=== PATIENT | female | born 1985 | race African-American/Black ===

== ENCOUNTER 2018-10-27 20:35 | Emergency (ER) | payer SELFPAY ==
[2018-10-27 21:50] LABS: Urine Bacteria >50 /HPF (<20); Urine Culture Reflex Order REFLEXED; Urine RBC <5 /HPF (NONE SEEN)
[2018-10-27 21:55] LABS: Urine Blood 1+ (NEG); Urine Glucose TRACE (NEG); Urine Protein 2+ (NEG); Urine Specific Gravity 1.015 (1.005-1.030)
[2018-10-27 22:04] LABS: Absolute Lymphocytes (CBC) 1.7 K/uL (0.7-4.9); Basophils % 0.4 % (0-1.3); Eosinophils % 0.1 % (0-4.4); Hematocrit 40.3 % (36.0-45.0); MPV 9.2 fL (7.6-11.3); Monocytes % 6.1 % (3.3-12.3); RBC Red Blood Cell Count 4.72 M/uL (3.86-4.86)
[2018-10-27] MEDS ORDERED: ONDANSETRON 4 MG/2 ML VIAL ONE (22:06)
[2018-10-27] MEDS ORDERED: KETOROLAC 30 MG/ML INJ ONE (22:09)
[2018-10-27 22:18] LABS: ALT/SGPT 29 U/L (12-78); AST/SGOT 32 U/L (15-37); Albumin 3.8 g/dL (3.4-5.0); Alkaline Phosphatase 78 U/L (45-117); BUN Blood Urea Nitrogen 6 mg/dL (7-18); Bicarbonate 24 mmol/L (21-32); Bilirubin Direct < 0.1 mg/dL (0-0.2); Bilirubin Total 0.2 mg/dL (0.2-1.0); Glucose Level 181 mg/dL (74-106); Lipase 120 U/L (73-393); Potassium 3.8 mmol/L (3.5-5.1); Protein, Total 8.6 g/dL (6.4-8.2); Sodium Level 138 mmol/L (136-145)
--- NOTE | 2018-10-27 23:38 | ER ---
Nurse's Notes [facility] Name: Jinny Zelaya Age: 33 yrs Sex: Female : 1985 Arrival Date: 10/27/2018 Time: 20:47 Bed 15 Private MD: Diagnosis: Urinary tract infection, site not specified Presentation: 10/27 20:51 Presenting complaint: Patient states: increased frequency of urination X1 week. pt c/o ak1 N/V today. Transition of care: patient was not received from another setting of care. Onset of symptoms is unknown. Risk Assessment: Do you want to hurt yourself or someone else? Patient reports no desire to harm self or others. Initial Sepsis Screen: Does the patient meet any 2 criteria? No. Patient's initial sepsis screen is negative. Does the patient have a suspected source of infection? No. Patient's initial sepsis screen is negative. Care prior to arrival: None. 20:51 Method Of Arrival: Ambulatory ak1 20:51 Acuity: ANAI 3 ak1 VEST PRESSER: 20:50 LMP 10/18/2018 ak1 Historical: - Allergies: 20:52 No Known Allergies; ak1 - Home Meds: 20:52 None [Active]; ak1 - PMHx: 20:52 None; ak1 - PSHx: 20:52 None; ak1 - Immunization history:: Adult Immunizations unknown. - Social history:: Smoking status: Patient/guardian denies using tobacco. - Ebola Screening: : No symptoms or risks identified at this time. - Family history:: not pertinent. - Hospitalizations: : No recent hospitalization is reported. Screenin:03 Abuse screen: Denies threats or abuse. Nutritional screening: No deficits noted. jd3 Tuberculosis screening: No symptoms or risk factors identified. Fall Risk IV access (20 points). Ambulatory Aid- None/Bed Rest/Nurse Assist (0 pts). Gait- Normal/Bed Rest/Wheelchair (0 pts) Mental Status- Oriented to own ability (0 pts). Total Nolasco Fall Scale indicates No Risk (0-24 pts). Assessment: 21:25 General: Appears in no apparent distress. uncomfortable, Behavior is calm, cooperative, jd3 appropriate for age. Pain: Complains of pain in abdomen Pain radiates to posterior aspect of right lateral abdomen and anterior aspect of right lateral abdomen Quality of pain is described as aching. Neuro: Level of Consciousness is awake, alert, obeys commands, Oriented to person, place, time, situation. Cardiovascular: Capillary refill < 3 seconds Patient's skin is warm and dry. Respiratory: Airway is patent Respiratory effort is even, unlabored, Respiratory pattern is regular, symmetrical, Denies cough, shortness of breath. GI: Abdomen is round non-distended, Abd is soft and non tender X 4 quads. Reports nausea, Patient currently denies diarrhea, vomiting. : Reports pain in right flank(s). EENT: No signs and/or symptoms were reported regarding the EENT system. Derm: Skin is intact, Skin is dry, Skin is normal, Skin temperature is warm. Musculoskeletal: Circulation, motion, and sensation intact. Range of motion: intact in all extremities. 23:04 Reassessment: Patient appears in no apparent distress at this time. Patient and/or jd3 family updated on plan of care and expected duration. Pain level reassessed. Patient is alert, oriented x 3, equal unlabored respirations, skin warm/dry/pink. awaiting results. 23:21 Reassessment: Patient appears in no apparent distress at this time. Patient and/or jd3 family updated on plan of care and expected duration. Pain level reassessed. Patient is alert, oriented x 3, equal unlabored respirations, skin warm/dry/pink. awaiting results and disposition. Patient states feeling better. Patient states symptoms have improved. 10/28 00:04 Reassessment: Patient appears in no apparent distress at this time. Patient and/or jd3 family updated on plan of care and expected duration. Pain level reassessed. Patient is alert, oriented x 3, equal unlabored respirations, skin warm/dry/pink. reported understanding of discharge instructions. even and steady gait upon discharge. Patient denies pain at this time. Patient states feeling better. Vital Signs: 10/27 20:50 BP 175 / 105; Pulse 92; Resp 18; Temp 98; Pulse Ox 98% on R/A; Weight 87.09 kg (R); ak1 Height 5 ft. 7 in. (170.18 cm) (R); Pain 10/10; 22:11 BP 157 / 105; Pulse 97; Pulse Ox 100% ; jd3 23:19 BP 116 / 67; Pulse 82; Resp 17 S; Pulse Ox 99% on R/A; Pain 2/10; jd3 20:50 Body Mass Index 30.07 (87.09 kg, 170.18 cm) ak1 ED Course: 20:47 Patient arrived in ED. ag3 20:52 Triage completed. ak1 20:52 Arm band placed on Patient placed in an exam room, Patient notified of wait time. ak1 21:12 Zachery Garcia MD is Attending Physician. rn 21:22 Radiology exam delayed due to test not completed at this time. nj 21:22 Jhonatan Hoyos RN is Primary Nurse. jd3 22:10 CT Stone Protocol In Process Unspecified. EDMS 23:04 Patient has correct armband on for positive identification. Placed in gown. Bed in low jd3 position. Call light in reach. Side rails up X 1. 10/28 00:06 No provider procedures requiring assistance completed. IV discontinued, intact, jd3 bleeding controlled, No redness/swelling at site. Pressure dressing applied. Administered Medications: 10/27 22:10 Drug: Zofran 4 mg Route: IVP; Site: left hand; jd3 23:10 Follow up: Response: No adverse reaction jd3 22:10 Drug: TORadol - Ketorolac 15 mg Route: IVP; Site: left hand; jd3 23:10 Follow up: Response: No adverse reaction jd3 23:43 Not Given (Duplicate Order): Rocephin - (cefTRIAXone) 1 grams IVPB once over 30 mins; jd3 (mix in 50 mL NS) 23:44 Drug: Rocephin 1 grams Route: IV; Rate: calculated rate; Site: left hand; jd3 10/28 00:07 Follow up: Response: No adverse reaction; IV Status: Completed infusion; IV Intake: [id number] Intake: 00:07 IV: 10ml; Total: 10ml. jd3 Outcome: 10/27 23:36 Discharge ordered by . rn 10/28 00:07 Discharged to home ambulatory. jd3 Condition: stable Discharge instructions given to patient, Instructed on discharge instructions, follow up and referral plans. medication usage, Demonstrated understanding of instructions, follow-up care, medications, Prescriptions given X 2. 00:08 Patient left the ED. jd3 Signatures: Dispatcher [employer] EDZachery Giordano MD MD rn Sarah Schmid RN RN ak1 Torey Guadarrama Jonathon, RN RN jd3 Ra, Maya jeffrey3
--- NOTE | 2018-10-27 23:38 | EDPHYS ---
Physician Documentation [facility] Name: Jinny Zelaya Age: 33 yrs Sex: Female : 1985 Arrival Date: 10/27/2018 Time: 20:47 Bed 15 Private MD: ED Physician Zachery Garcia HPI: 10/27 22:00 This 33 yrs old Black Female presents to ER via Ambulatory with complaints of Nausea. rn 22:00 The patient presents with abdominal pain right lower quadrant. Onset: The rn symptoms/episode began/occurred 6 day(s) ago. The symptoms radiate to The symptoms are described as achy, intermittent. Modifying factors: The symptoms are alleviated by nothing, the symptoms are aggravated by nothing. Severity of pain: At its worst the pain was mild in the emergency department the pain is unchanged. The patient has not experienced similar symptoms in the past. Reports right flank/right lower abd pain, intermittent, began 6 days ago, thought she had UTI, took Azo, now orange urine, assoc with nausea and vomiting, no diarrhea. . BANQUET LEAD: 20:50 LMP 10/18/2018 ak1 Historical: - Allergies: 20:52 No Known Allergies; ak1 - Home Meds: 20:52 None [Active]; ak1 - PMHx: 20:52 None; ak1 - PSHx: 20:52 None; ak1 - Immunization history:: Adult Immunizations unknown. - Social history:: Smoking status: Patient/guardian denies using tobacco. - Ebola Screening: : No symptoms or risks identified at this time. - Family history:: not pertinent. - Hospitalizations: : No recent hospitalization is reported. ROS: 22:00 Constitutional: Negative for fever, chills, and weight loss, Eyes: Negative for injury, rn pain, redness, and discharge, Cardiovascular: Negative for chest pain, palpitations, and edema, Respiratory: Negative for shortness of breath, cough, wheezing, and pleuritic chest pain, Abdomen/GI: Negative for diarrhea, and constipation, Back: Negative for injury : Negative for injury, bleeding, discharge, and swelling, MS/Extremity: Negative for injury and deformity, Skin: Negative for injury, rash, and discoloration, Neuro: Negative for headache, weakness, numbness, tingling, and seizure. Exam: 22:00 Constitutional: This is a well developed, well nourished patient who is awake, alert, rn and in no acute distress. Laying in bed, on phone. Head/Face: Normocephalic, atraumatic. Eyes: Pupils equal round and reactive to light, extra-ocular motions intact. Lids and lashes normal. Conjunctiva and sclera are non-icteric and not injected. Cornea within normal limits. Periorbital areas with no swelling, redness, or edema. ENT: MMM Neck: Trachea midline, no thyromegaly or masses palpated, and no cervical lymphadenopathy. Supple, full range of motion without nuchal rigidity, or vertebral point tenderness. No Meningismus. Abdomen/GI: soft, very mild RLQ tenderness with deep palpation, no rebound, no masses Back: No spinal tenderness. No costovertebral tenderness. Full range of motion. Skin: Warm, dry with normal turgor. Normal color with no rashes, no lesions, and no evidence of cellulitis. MS/ Extremity: Pulses equal, no cyanosis. Neurovascular intact. Full, normal range of motion. Equal circumference. Neuro: Awake and alert, GCS 15, oriented to person, place, time, and situation. Cranial nerves II-XII grossly intact. Motor strength 5/5 in all extremities. Sensory grossly intact. Cerebellar exam normal. Normal gait. Vital Signs: 20:50 BP 175 / 105; Pulse 92; Resp 18; Temp 98; Pulse Ox 98% on R/A; Weight 87.09 kg (R); ak1 Height 5 ft. 7 in. (170.18 cm) (R); Pain 10/10; 22:11 BP 157 / 105; Pulse 97; Pulse Ox 100% ; jd3 23:19 BP 116 / 67; Pulse 82; Resp 17 S; Pulse Ox 99% on R/A; Pain 2/10; jd3 20:50 Body Mass Index 30.07 (87.09 kg, 170.18 cm) ak1 MDM: 21:12 Patient medically screened. rn 23:35 Differential diagnosis: appendicitis, non-specific abd pain, Ureterolithiasis, urinary rn tract infection. Data reviewed: vital signs, nurses notes, lab test result(s), radiologic studies, CT scan, and as a result, I will discharge patient. Counseling: I had a detailed discussion with the patient and/or guardian regarding: the historical points, exam findings, and any diagnostic results supporting the discharge/admit diagnosis, lab results, radiology results, the need for outpatient follow up, to return to the emergency department if symptoms worsen or persist or if there are any questions or concerns that arise at home. Response to treatment: the patient's symptoms have mildly improved after treatment, and as a result, I will discharge patient. Special discussion: I discussed with the patient/guardian in detail that at this point there is no indication for admission to the hospital. It is understood, however, that if the symptoms persist or worsen the patient needs to return immediately for re-evaluation. 10/27 21:17 Order name: Basic Metabolic Panel; Complete Time: 23:29 10/27 21:17 Order name: CBC with Diff; Complete Time: 23:29 10/27 21:17 Order name: Hepatic Function; Complete Time: 23:29 10/27 21:17 Order name: Lipase; Complete Time: 23:29 10/27 21:17 Order name: Urine Microscopic Only; Complete Time: 23:29 10/27 21:36 Order name: Urine Dipstick--Ancillary (enter results); Complete Time: 23:29 az 10/27 21:17 Order name: IV Saline Lock; Complete Time: 21:39 10/27 21:17 Order name: CT Stone Protocol 10/27 21:36 Order name: Urine --Ancillary (enter results); Complete Time: 23:29 az 10/27 21:51 Order name: Urine Culture [facility] 10/27 21:17 Order name: Labs collected and sent; Complete Time: 21:58 10/27 21:17 Order name: Urine Test (obtain specimen); Complete Time: 21:36 10/27 21:17 Order name: Urine Dipstick-Ancillary (obtain specimen); Complete Time: 21:36 rn Administered Medications: 22:10 Drug: Zofran 4 mg Route: IVP; Site: left hand; jd3 23:10 Follow up: Response: No adverse reaction jd3 22:10 Drug: TORadol - Ketorolac 15 mg Route: IVP; Site: left hand; jd3 23:10 Follow up: Response: No adverse reaction jd3 23:43 Not Given (Duplicate Order): Rocephin - (cefTRIAXone) 1 grams IVPB once over 30 mins; jd3 (mix in 50 mL NS) 23:44 Drug: Rocephin 1 grams Route: IV; Rate: calculated rate; Site: left hand; jd3 10/28 00:07 Follow up: Response: No adverse reaction; IV Status: Completed infusion; IV Intake: [id number] Disposition: 10/27/18 23:36 Discharged to Home. Impression: Urinary tract infection, site not specified. - Condition is Stable. - Discharge Instructions: Urinary Tract Infection, Adult. - Prescriptions for cefpodoxime 100 mg Oral Tablet - take 2 tablet by ORAL route every 12 hours for 10 days take with food; 40 tablet. Zofran ODT 4 mg Oral tablet,disintegrating - place 1 tablet by TRANSLINGUAL route every 8 hours As needed; 20 tablet. - Medication Reconciliation Form, Thank You Letter, Antibiotic Education, Prescription Opioid Use form. - Follow up: Private Physician; When: As needed; Reason: Recheck today's complaints, Re-evaluation by your physician. - Problem is new. - Symptoms have improved. Signatures: Dispatcher [employer] EDMS Zachery Garcia MD MD rn Krenek, Amber RN RN ak1 Jhonatan Hoyos RN RN jd3 Corrections: (The following items were deleted from the chart) 00:08 10/27 23:36 10/27/2018 23:36 Discharged to Home. Impression: Urinary tract infection, jd3 site not specified. Condition is Stable. Forms are Medication Reconciliation Form, Thank You Letter, Antibiotic Education, Prescription Opioid Use. Follow up: Private Physician; When: As needed; Reason: Recheck today's complaints, Re-evaluation by your physician. Problem is new. Symptoms have improved. rn
[2018-10-27] MEDS ORDERED: CEFTRIAXONE/SWI 1gm 1 GM/10 ML SYR ONE (23:48)
--- NOTE | 2018-10-28 09:55 | RAD REPORT ---
EXAM DESCRIPTION: CT - Stone Protocol - 10/28/2018 2:46 am CLINICAL HISTORY: 33 years Female right abd pain COMPARISON: None. TECHNIQUE: Contiguous axial images obtained through the abdomen and pelvis without IV contrast. Refo rmatted images obtained. This exam was performed according to our department optimization program which includes automated exp osure control, adjustment of the mA and/or kv according to patient size and/or use of iterative recon struction technique. FINDINGS: The lung bases are clear. The liver is enlarged measuring 22 cm in length. The spleen and pancreas appear unremarkable. No adrenal masses. No hydronephrosis or ureteral calculi. There is stranding within the retroperitoneum on the right telma und the area of the ureter. This could be secondary to pyelonephritis/ureteritis. There appears to be mild urinary bladder wall thickening which could be from cystitis. The gallbladder is visualized. No aneurysmal dilatation of the aorta. The rectum is slightly distended with stool. There is mild wall thickening in the distal transverse c olon, descending colon and sigmoid colon likely from incomplete distention. No bowel obstruction. The appendix appears unremarkable. No significant free pelvic fluid. IMPRESSION: There is stranding within the retroperitoneum on the right around the area of the ureter . There is also possible wall thickening in the urinary bladder. The findings could be from pyeloneph ritis/ureteritis/cystitis. Clinical and laboratory correlation is recommended. Mild wall thickening in the colon which is most likely from incomplete distention. Clinical correlati on recommended. Hepatomegaly. Electronically signed by: Ralf Husain MD 10/27/2018 10:29 PM CDT Due to temporary technical issues with the PACS/Fluency reporting system, reports are being signed by the in house radiologist as a courtesy to ensure prompt reporting. The interpreting radiologist is f ully responsible for the content of the report.
== END 2018-10-28 00:08 | disposition home or self-care (01) ==
LOC: ER 20:35
DX: N39.0 Urinary tract infection, site not specified (principal)
CPT/HCPCS: 36415; 74176; 76377; 80048; 80076; 81003; 81015; 81025; 83690; 85025; 87077; 87086; 87088; 87186; 96365; 96375; 99283; J0696; J2405

== ENCOUNTER 2019-03-29 13:54 | Emergency (ER) | payer SELFPAY ==
--- OUTSIDE RECORDS SUMMARY | 2019-03-29 13:57 | XMS REPORT ---
:1985 [facility] Address [address] [place] [address] Dr. Sanchez [address] [place] [id number] Care Team Providers Name Role Phone DR KELLEY MASON Unavailable Unavailable Problems This patient has no known problems. Allergies, Adverse Reactions, Alerts This patient has no known allergies or adverse reactions. Medications This patient has no known medications. Encounters Start End Encounter Admission Attending Care Care Encounter Date/Time Date/Time Type Type Clinicians Facility Department ID 2018-06-13 2018-06-13 Outpatient MARCUS WILSON [facility] [id number] 05:35:00 10:20:00 [facility] 2018-03-06 2018-03-06 Outpatient MARCUS WARD OB [id number] 10:36:00 13:39:00 [facility] 2018-01-25 2018-01-25 Outpatient MARCUS WILSON RAD [id number] 11:46:00 23:59:00 [facility] Results Test Description Test Time Test Comments Text Results Atomic Results Result Comments U/S >14 2018-01-25 16:21:52 Examination: Obstetrical WEEKS ultrasoundLocation code: [id number]: NoneDiscussion:Clinical history is remarkable for anatomic assessment. Transverse andlongitudinal images were obtained of the maternal abdomen to evaluate thefetus. Castillo is identified in cephalic presentation. Thefollowing values were obtained:BPD 5.2 cm - 21 weeks, 6 daysHC 20.9 cm - 23 weeks, 0 daysAC 17.9 cm - 22 weeks, 5 daysFL 3.9 cm - 22 weeks, 4 daysAFI 12.7 cmEstimated weight 529 g, 51 percentileBased upon sonographic criteria, the calculated age is 22 weeks, 3 dayswith an estimated date of delivery of 05/28/18. Based on clinical criteria,the calculated age is 23 weeks, 1 days with an estimated date of deliveryof 05/23/18.The maternal adnexa are displaced from the [id number].A grade 1 posterior placenta is identified. The cervix is closed, measuring5.4cm. The intracranial structures are unremarkable. The cervical, thoracic,and lumbar spine are within normal limits. Three-vessel cord is present withcentral abdominal insertion. Stomach, kidneys, and bladder are within normallimits. Extremities are unremarkable. Four chamber heart is presentdemonstrating cardiac activity of 124 beats/min.Impression:Normal ultrasound.
--- NOTE | 2019-03-29 15:32 | EDPHYS ---
Physician Documentation [facility] Name: Jinny Zelaya Age: 33 yrs Sex: Female : 1985 Arrival Date: 03/29/2019 Time: 14:00 Bed 25 Private MD: ED Physician Taye Escobar HPI: 03/29 15:28 This 33 yrs old Black Female presents to ER via Ambulatory with complaints of Urinary la1 Problem. 15:28 The patient presents with urinary symptoms, dysuria, frequency, urgency. Onset: The la1 symptoms/episode began/occurred 3 day(s) ago. Modifying factors: The symptoms are alleviated by nothing, the symptoms are aggravated by urinating. Associated signs and symptoms: Pertinent negatives: diarrhea, fever, nausea, vaginal bleeding, vaginal discharge, vomiting. Severity of symptoms: At their worst the symptoms were mild. The patient is sexually active, reportedly has a single partner. The patient has experienced a previous episode. Historical: - Allergies: 14:11 No Known Allergies; sg - Home Meds: 14:11 None [Active]; sg - PMHx: 14:11 None; sg - PSHx: 14:11 None; sg - Immunization history:: Adult Immunizations up to date. - Social history:: Smoking status: Patient/guardian denies using tobacco. - Ebola Screening: : Patient negative for fever greater than or equal to 101.5 degrees Fahrenheit, and additional compatible Ebola Virus Disease symptoms Patient denies exposure to infectious person Patient denies travel to an Ebola-affected area in the 21 days before illness onset No symptoms or risks identified at this time. ROS: 15:29 Positive for urinary symptoms, urinary frequency, burning with urination, difficulty la1 urinating, Negative for injury or acute deformity, pelvic pain, bladder incontinence, foul smelling urine, vaginal bleeding, vaginal discharge, vaginal itching. 15:29 Constitutional: Negative for fever, chills, and weight loss, Eyes: Negative for injury, pain, redness, and discharge, Cardiovascular: Negative for chest pain, palpitations, and edema, Respiratory: Negative for shortness of breath, cough, wheezing, and pleuritic chest pain, Abdomen/GI: Negative for abdominal pain, nausea, vomiting, diarrhea, and constipation, Back: Negative for injury and pain, MS/Extremity: Negative for injury and deformity, Skin: Negative for injury, rash, and discoloration, Neuro: Negative for headache, weakness, numbness, tingling, and seizure. Exam: 15:30 Constitutional: This is a well developed, well nourished patient who is awake, alert, la1 and in no acute distress. Eyes: Pupils equal round and reactive to light, extra-ocular motions intact. Periorbital areas with no swelling, redness, or edema. ENT: Mucous membranes moist. Chest/axilla: Normal chest wall appearance and motion. Nontender with no deformity. No lesions are appreciated. Cardiovascular: Regular rate and rhythm with a normal S1 and S2. No gallops, murmurs, or rubs. Normal PMI, no JVD. No pulse deficits. Respiratory: Lungs have equal breath sounds bilaterally, clear to auscultation No rales, rhonchi or wheezes noted. No increased work of breathing, no retractions or nasal flaring. Back: No spinal tenderness. No costovertebral tenderness. Full range of motion. Skin: Warm, dry with normal turgor. Normal color with no rashes, no lesions, and no evidence of cellulitis. MS/ Extremity: Pulses equal, no cyanosis. Neurovascular intact. Full, normal range of motion. Vital Signs: 14:13 BP 165 / 95; Pulse 107; Resp 18; Temp 98.8; Pulse Ox 99% on R/A; Weight 87.09 kg; sg Height 5 ft. 7 in. (170.18 cm); Pain 10/10; 15:40 BP 148 / 84; Pulse 89; Resp 18; Temp 98.8; Pulse Ox 99% on R/A; Pain 10/10; sr5 14:13 Body Mass Index 30.07 (87.09 kg, 170.18 cm) sg 15:40 urinary pressure sr5 MDM: 15:05 Patient medically screened. la1 15:31 Data reviewed: vital signs, nurses notes, lab test result(s), I have discussed the la1 patient's presentation/case with the attending Emergency Department Physician; and as a result, I will discharge patient. Data interpreted: Pulse oximetry: on room air. Counseling: I had a detailed discussion with the patient and/or guardian regarding: the historical points, exam findings, and any diagnostic results supporting the discharge/admit diagnosis, lab results, the need for outpatient follow up, a family practitioner. 12 15:24 Order name: Urine Dipstick--Ancillary (enter results) eb 03/29 15:24 Order name: Urine --Ancillary (enter results) eb 03/29 15:28 Order name: Urine Microscopic Only la1 03/29 15:28 Order name: Urine Culture la1 Administered Medications: No medications were administered Disposition: 03/30 09:02 Co-signature as Attending Physician, Taye Escobar MD I agree with the assessment and kdr plan of care. Disposition: 03/29/19 15:32 Discharged to Home. Impression: Acute cystitis. - Condition is Stable. - Discharge Instructions: Urinary Tract Infection, Adult, Irjy-[id number], Urinary Frequency, Adult. - Prescriptions for Pyridium 200 mg Oral Tablet - take 1 tablet by ORAL route every 8 hours for 3 days; 9 tablet. Macrobid 100 mg Oral Capsule - take 1 capsule by ORAL route every 12 hours for 7 days; 14 capsule. - Work release form, Medication Reconciliation Form, Thank You Letter, Antibiotic Education form. - Follow up: Private Physician; When: 2 - 3 days; Reason: Recheck today's complaints, Re-evaluation by your physician. Follow up: Emergency Department; When: As needed. - Problem is new. - Symptoms are unchanged. Signatures: Dispatcher [employer] EDGus Brock, RN Taye Vargas MD MD [facility] Jose Peguero, LATHING SUPERVISOR-C LATHING SUPERVISOR-Cla1 Terrence Cortes RN RN sr5 Corrections: (The following items were deleted from the chart) 03/29 15:46 15:32 03/29/2019 15:32 Discharged to Home. Impression: Acute cystitis. Condition is sr5 Stable. Forms are Medication Reconciliation Form, Thank You Letter, Antibiotic Education, Prescription Opioid Use. Follow up: Private Physician; When: 2 - 3 days; Reason: Recheck today's complaints, Re-evaluation by your physician. Follow up: Emergency Department; When: As needed. Problem is new. Symptoms are unchanged. la1
--- NOTE | 2019-03-29 15:32 | ER ---
Nurse's Notes [facility] Name: Jinny Zelaya Age: 33 yrs Sex: Female : 1985 Arrival Date: 03/29/2019 Time: 14:00 Bed 25 Private MD: Diagnosis: Acute cystitis Presentation: 03/29 14:14 Presenting complaint: Patient states: Urinary pain and frequency that started about 3 sg days ago, reports having UTI in the past but none have lasted this long or gotten this bad before, treating at home with water and cranberry juice but no medicatons reported at this time. Transition of care: patient was not received from another setting of care. Onset of symptoms was March 29, 2019. Risk Assessment: Do you want to hurt yourself or someone else? Patient reports no desire to harm self or others. Initial Sepsis Screen: Does the patient meet any 2 criteria? HR > 90 bpm. Does the patient have a suspected source of infection? Yes: Dysuria/Frequency/Urgency/UTI. Care prior to arrival: None. 14:14 Method Of Arrival: Ambulatory sg 14:14 Acuity: ANAI 3 sg Historical: - Allergies: 14:11 No Known Allergies; sg - Home Meds: 14:11 None [Active]; sg - PMHx: 14:11 None; sg - PSHx: 14:11 None; sg - Immunization history:: Adult Immunizations up to date. - Social history:: Smoking status: Patient/guardian denies using tobacco. - Ebola Screening: : Patient negative for fever greater than or equal to 101.5 degrees Fahrenheit, and additional compatible Ebola Virus Disease symptoms Patient denies exposure to infectious person Patient denies travel to an Ebola-affected area in the 21 days before illness onset No symptoms or risks identified at this time. Screenin:40 Abuse screen: Denies threats or abuse. Nutritional screening: No deficits noted. sr5 Tuberculosis screening: No symptoms or risk factors identified. Fall Risk None identified. Assessment: 15:10 General: Appears in no apparent distress. Behavior is calm, cooperative. Pain: Denies sr5 pain. Neuro: Level of Consciousness is awake, alert, obeys commands, Oriented to person, place, time, situation, Gait is steady. Cardiovascular: Patient's skin is warm and dry. Respiratory: Respiratory effort is even, unlabored, Respiratory pattern is regular, symmetrical. GI: No signs and/or symptoms were reported involving the gastrointestinal system. : Reports urgency, urinary frequency. EENT: No signs and/or symptoms were reported regarding the EENT system. Derm: No signs and/or symptoms reported regarding the dermatologic system. Musculoskeletal: No signs and/or symptoms reported regarding the musculoskeletal system. Vital Signs: 14:13 BP 165 / 95; Pulse 107; Resp 18; Temp 98.8; Pulse Ox 99% on R/A; Weight 87.09 kg; sg Height 5 ft. 7 in. (170.18 cm); Pain 10/10; 15:40 BP 148 / 84; Pulse 89; Resp 18; Temp 98.8; Pulse Ox 99% on R/A; Pain 10/10; sr5 14:13 Body Mass Index 30.07 (87.09 kg, 170.18 cm) sg 15:40 urinary pressure sr5 ED Course: 14:00 Patient arrived in ED. mr 14:10 Arm band placed on. sg 14:16 Triage completed. sg 15:05 Jose Peguero FNP-C [facility]. la1 15:05 Taye Escobar MD is Attending Physician. la1 15:14 Terrence Cortes RN is Primary Nurse. sr5 15:40 Patient has correct armband on for positive identification. Placed in gown. Bed in low sr5 position. Call light in reach. 15:40 No provider procedures requiring assistance completed. Patient did not have IV access sr5 during this emergency room visit. Administered Medications: No medications were administered Outcome: 15:32 Discharge ordered by . la1 15:40 Discharged to home ambulatory. sr5 15:40 Condition: good 15:40 Discharge instructions given to patient, Instructed on discharge instructions, follow up and referral plans. medication usage, Demonstrated understanding of instructions, follow-up care, medications, Prescriptions given X 2. 15:46 Patient left the ED. sr5 Addendum: 04/02/2019 07:19 Addendum: Culture Results: Positive urine culture. No further action required. Bacteria e b sensitive to prescribed antibiotic. Signatures: Gus Miller RN RN Raisa Bill mr Jose Peguero FNP-C SERVER DEVELOPER-Cla1 Terrence Cortes RN RN sr5 Lisy Medina
[2019-03-29 15:33] LABS: Urine Blood 2+ (NEG); Urine Glucose NEGATIVE (NEG); Urine Protein 2+ (NEG)
[2019-03-29 15:48] LABS: Urine Bacteria LOADED /HPF (<20); Urine Culture Reflex Order NOT NEEDED; Urine RBC 20-50 /HPF (NONE SEEN)
[2019-03-29 18:21] VITALS: O2SAT 99
[2019-03-29 18:26] VITALS: BP 118/74; TEMP 98.6
== END 2019-03-29 15:46 | disposition home or self-care (01) ==
LOC: ER 13:54
DX: N30.00 Acute cystitis without hematuria (principal)
CPT/HCPCS: 81003; 81015; 81025; 87077; 87086; 87088; 87186; 99282

== ENCOUNTER 2019-08-13 18:22 | Emergency (ER) | payer SELFPAY ==
--- OUTSIDE RECORDS SUMMARY | 2019-08-13 18:24 | XMS REPORT ---
:1985 Author Organization [facility] t Address [address] [place] [address] Care Team Providers Name Role Phone DR KELLEY MASON Unavailable Unavailable Problems This patient has no known problems. Allergies, Adverse Reactions, Alerts This patient has no known allergies or adverse reactions. Medications This patient has no known medications. Encounters Start End Encounter Admission Attending Care Care Encounter Date/Time Date/Time Type Type Clinicians Facility Department ID 2018-06-13 2018-06-13 Outpatient MARCUS WILSON [facility] [id number] 05:35:00 10:20:00 [facility] 2018-03-06 2018-03-06 Outpatient MARCUS WARD OB [id number] 10:36:00 13:39:00 [facility] 2018-01-25 2018-01-25 Outpatient MARCUS WILSON RAD [id number] 11:46:00 23:59:00 [facility] Results Test Description Test Time Test Comments Text Results Atomic Results Result Comments U/S >14 2018-01-25 16:21:52 Examination: Obs tetrical WEEKS ultrasoundLocation code: D4C omparison: NoneDiscussion:Clinical hist ory is remarkable for anatomi c assessment. Transverse andl ongitudinal images were obtained of the maternal abdomen to evaluate thefetus . Castillo is identified in c ephalic presentation. Thefollowing v alues were obtained:BPD 5. 2 cm - 21 weeks, 6 daysHC 20.9 cm - 23 weeks, 0 daysAC 17.9 cm - 22 weeks, 5 daysF L 3.9 cm - 22 weeks, 4 daysAFI 12.7 cmEstimated weigh t 529 g, 51 percentileBased upon sonogra [facility] criteria, the calculated fet al age is 22 weeks, 3 dayswith an priyanka mated date of delivery of 05/28/18. B ased on clinical criteria,the calcul ated age is 23 weeks, 1 days with an estimated date of deliveryof 05/23/18.The maternal adnexa are displaced from the field-of- view.A grade 1 posterior placenta i s identified. The cervix is c losed, measuring5.4cm. The intracr anial structures are unremarkable. The cervical, thoracic,and lumba r spine are within normal limits. Three -vessel cord is present withcentral abdominal insertion. Stomach, kidneys , and bladder are within normallim its. Extremities are unremarkable . Four chamber heart is presentdemo nstrating cardiac activity of 124 beats/min.Impression:Normal ultrasound.
--- NOTE | 2019-08-13 19:49 | RAD REPORT ---
EXAM DESCRIPTION: RAD - Chest Single View - 08/13/2019 7:18 pm CLINICAL HISTORY: CHEST PAIN COMPARISON: None TECHNIQUE: AP portable chest image was obtained 08/13/2019 7:18 pm . FINDINGS: Lungs are clear. Heart and vasculature are normal. No measurable pleural effusion and no p neumothorax. No acute bony abnormality seen. No acute aortic findings suspected. IMPRESSION: No acute cardiopulmonary process.
[2019-08-13 20:02] LABS: Absolute Lymphocytes (CBC) 2.7 K/uL (0.7-4.9); Basophils % 0.3 % (0-1.3); Hematocrit 41.3 % (36.0-45.0); Lymphocytes % 35.6 % (15.3-44.8); MPV 9.8 fL (7.6-11.3); RBC Red Blood Cell Count 4.86 M/uL (3.86-4.86)
[2019-08-13 20:03] LABS: Protime INR 0.98
[2019-08-13 20:17] LABS: ALT/SGPT 30 U/L (12-78); AST/SGOT 30 U/L (15-37); Albumin 3.9 g/dL (3.4-5.0); Alkaline Phosphatase 81 U/L (45-117); BUN Blood Urea Nitrogen 9 mg/dL (7-18); Bicarbonate 21 mmol/L (21-32); Bilirubin Direct < 0.1 mg/dL (0-0.2); Bilirubin Total 0.3 mg/dL (0.2-1.0); Glucose Level 208 mg/dL (74-106); Magnesium 1.8 mg/dL (1.8-2.4); NT PRO-BNP 11 pg/mL (<125); Potassium 3.8 mmol/L (3.5-5.1); Protein, Total 8.8 g/dL (6.4-8.2); Sodium Level 135 mmol/L (136-145); Troponin (Emerg Dept Use Only) < 0.02 ng/mL (0.0-0.045)
[2019-08-13 20:20] LABS: Urine Blood NEGATIVE (NEG); Urine Glucose TRACE (NEG); Urine Protein 1+ (NEG); Urine Specific Gravity >1.030 (1.005-1.030); Urine pH 5.5 (5.0-7.0)
--- NOTE | 2019-08-13 20:43 | ER ---
Nurse's Notes [facility] Name: Jinny Zelaya Age: 34 yrs Sex: Female : 1985 Arrival Date: 08/13/2019 Time: 18:23 Bed 17 Private MD: Diagnosis: Chest pain, unspecified Presentation: 08/12 18:24 Chief complaint: Patient states: "my chest has been hurting on and off for about a aa5 week". Pt reports episodes of chest pain that last approximately 1 hour. Pt states "I don't have high blood pressure but my blood pressure has been high lately". Pt denies cough, denies nausea/vomiting, denies SOB, denies fever. 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 18:24 Coronavirus screen: Proceed with normal triage. Patient denies a cough. Patient denies aa5 shortness of breath or difficulty breathing. Patient denies measured and/or subjective temperature greater than 100.4F prior to today's visit. Patient denies travel on a cruise ship or to a country the [facility] currently lists as an affected area. Patient denies contact with known and/or suspected case of COVID-19. Ebola Screen: Patient negative for fever greater than or equal to 101.5 degrees Fahrenheit, and additional compatible Ebola Virus Disease symptoms. Initial Sepsis Screen: Does the patient meet any 2 criteria? No. Patient's initial sepsis screen is negative. Does the patient have a suspected source of infection? No. Patient's initial sepsis screen is negative. Risk Assessment: Do you want to hurt yourself or someone else? Patient reports no desire to harm self or others. Onset of symptoms was July 2019. 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 - Social history:: Smoking status: Patient denies any tobacco usage or history of. Screenin:35 Abuse screen: Denies threats or abuse. Nutritional screening: No deficits noted. rb1 Tuberculosis screening: No symptoms or risk factors identified. Fall Risk None identified. Assessment: 18:35 General: Appears in no apparent distress. comfortable, Behavior is calm, cooperative. rb1 Pain: Complains of pain in anterior aspect of left upper chest Pain radiates to mid-sternal area Pain currently is 6 out of 10 on a pain scale. Neuro: Level of Consciousness is awake, alert, obeys commands, Oriented to person, place, time, situation. Cardiovascular: Reports shortness of breath, Denies lightheadedness, Capillary refill < 3 seconds. Respiratory: Airway is patent Respiratory effort is even, unlabored, Respiratory pattern is regular, symmetrical. GI: No signs and/or symptoms were reported involving the gastrointestinal system. : No signs and/or symptoms were reported regarding the genitourinary system. Derm: Skin is dry, Skin is normal, Skin temperature is warm. 18:35 General: Pt. reports that she doesn't have a history of hypertension, but her BP has rb1 been elevated.. 18:35 Pain: Pain began approximately one week. rb1 20:00 Reassessment: Patient appears in no apparent distress at this time. Patient is alert, lp1 oriented x 3, equal unlabored respirations, skin warm/dry/pink. Patient denies need for medication for pain; states pain 6/10 on pain scale. 21:01 Reassessment: Patient appears in no apparent distress at this time. Patient and/or lp1 family updated on plan of care and expected duration. Pain level reassessed. Patient is alert, oriented x 3, equal unlabored respirations, skin warm/dry/pink. Vital Signs: 18:24 BP 165 / 111; Pulse 108; Resp 18 S; Temp 98.6(O); Pulse Ox 96% on R/A; Weight 87.54 kg aa5 (R); Height 5 ft. 7 in. (170.18 cm) (R); Pain 6/10; 18:40 Height 5 ft. 7 in. (170.18 cm) (R); Pain 6/10; rb1 19:00 BP 160 / 111; Pulse 110; Resp 18; Pulse Ox 99% on R/A; lp1 20:00 BP 140 / 101; Pulse 99; Resp 18; Pulse Ox 99% on R/A; Pain 5/10; lp1 20:58 BP 147 / 98; Pulse 93; Resp 18; Pulse Ox 97% on R/A; lp1 18:40 Body Mass Index 30.23 (87.54 kg, 170.18 cm) rb1 ED Course: 18:23 Patient arrived in ED. as 18:24 Arm band placed on Patient placed in an exam room, on a stretcher. aa5 18:28 Susan Ambrocio [facility]NP-C [facility]. kb 18:28 Taye Escobar MD is Attending Physician. kb 18:35 Patient has correct armband on for positive identification. Bed in low position. Call rb1 light in reach. Side rails up X 1. seed cleaner on. Pulse ox on. NIBP on. 18:35 Patient maintains SpO2 saturation greater than 95% on room air. rb1 18:36 Triage completed. aa5 19:06 Guillermina Anthony, RN is Primary Nurse. rb1 19:15 Missed attempt(s): 22 gauge in right antecubital area. lt1 19:15 Initial lab(s) drawn, by me, sent to lab. EKG done, by ED staff. Inserted saline lock: lt1 22 gauge in left antecubital area, using aseptic technique. 19:18 XRAY Chest (1 view) In Process Unspecified. EDMS 19:49 Troponin (emerg Dept Use Only) Sent. ds4 19:49 PT-INR Sent. ds4 19:49 NT PRO-BNP Sent. ds4 19:49 Magnesium Sent. ds4 19:49 LFT's Sent. ds4 19:49 CBC with Diff Sent. ds4 19:50 Basic Metabolic Panel Sent. ds4 19:50 D-Dimer Sent. ds4 21:01 No provider procedures requiring assistance completed. IV discontinued, No lp1 redness/swelling at site. Pressure dressing applied. Administered Medications: No medications were administered Outcome: 20:42 Discharge ordered by . kb 21:01 Discharged to home ambulatory. lp1 21:01 Condition: good 21:01 Discharge instructions given to patient, Instructed on discharge instructions, follow up and referral plans. Demonstrated understanding of instructions, follow-up care. 21:01 Patient left the ED. lp1 Signatures: Dispatcher [employer] EDOH Susan Ambrocio FNP-C FNP-Laura Benjamin Audri, RN RN aa5 Valeria Kim RN RN lp1 Heraclio Cedillo ds4 Guillermina Anthony, RN RN rb1 [address]la [address] lt1
--- NOTE | 2019-08-13 20:43 | EDPHYS ---
Physician Documentation [facility] Name: Jinny Zelaya Age: 34 yrs Sex: Female : 1985 Arrival Date: 08/13/2019 Time: 18:23 Bed 17 Private MD: ED Physician Taye Escobar HPI: 08/12 23:50 This 34 yrs old Black Female presents to ER via Ambulatory with complaints of Chest kb Pain. 23:50 The patient or guardian reports chest pain that is located primarily in the anterior kb chest wall, left. The pain does not radiate. Associated signs and symptoms: Pertinent positives: shortness of breath, Pertinent negatives: abdominal pain, cough, diaphoresis, dizziness, headache, lower extremity pain, lower extremity swelling, lightheadedness, nausea, near syncope, palpitations, recent travel, syncope, vomiting. The chest pain is described as tightness. Duration: The patient or guardian reports a single episode, that is still ongoing. Modifying factors: The symptoms are alleviated by nothing. the symptoms are aggravated by nothing. Severity of pain: At its worst the pain was mild moderate in the emergency department the pain is unchanged. The patient has not experienced similar symptoms in the past. The patient has not recently seen a physician. Pt reports left sided chest tightness for a week. Reports she sometimes feels like she has to take a deep breath to "catch up." Denies any other symptoms.. 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 - Social history:: Smoking status: Patient denies any tobacco usage or history of. ROS: 23:49 Constitutional: Negative for fever, chills, and weight loss, Neck: Negative for injury, kb pain, and swelling, Abdomen/GI: Negative for abdominal pain, nausea, vomiting, diarrhea, and constipation, Back: Negative for injury and pain, MS/Extremity: Negative for injury and deformity, Skin: Negative for injury, rash, and discoloration, Neuro: Negative for headache, weakness, numbness, tingling, and seizure. 23:49 Cardiovascular: Positive for chest pain, Negative for edema, orthopnea, palpitations, paroxysmal nocturnal dyspnea. 23:49 Respiratory: Positive for shortness of breath. Exam: 18:51 ECG was reviewed by the Attending Physician. kdr 23:50 Constitutional: This is a well developed, well nourished patient who is awake, alert, kb and in no acute distress. Head/Face: Normocephalic, atraumatic. ENT: Nares patent. No nasal discharge, no septal abnormalities noted. Tympanic membranes are normal and external auditory canals are clear. Oropharynx with no redness, swelling, or masses, exudates, or evidence of obstruction, uvula midline. Mucous membranes moist. Neck: Trachea midline, no thyromegaly or masses palpated, and no cervical lymphadenopathy. Supple, full range of motion without nuchal rigidity, or vertebral point tenderness. No Meningismus. Chest/axilla: Normal chest wall appearance and motion. Nontender with no deformity. No lesions are appreciated. Cardiovascular: Regular rate and rhythm with a normal S1 and S2. No gallops, murmurs, or rubs. Normal PMI, no JVD. No pulse deficits. Respiratory: Lungs have equal breath sounds bilaterally, clear to auscultation and percussion. No rales, rhonchi or wheezes noted. No increased work of breathing, no retractions or nasal flaring. Abdomen/GI: Soft, non-tender, with normal bowel sounds. No distension or tympany. No guarding or rebound. No evidence of tenderness throughout. Skin: Warm, dry with normal turgor. Normal color with no rashes, no lesions, and no evidence of cellulitis. MS/ Extremity: Pulses equal, no cyanosis. Neurovascular intact. Full, normal range of motion. Neuro: Awake and alert, GCS 15, oriented to person, place, time, and situation. Cranial nerves II-XII grossly intact. Motor strength 5/5 in all extremities. Sensory grossly intact. Cerebellar exam normal. Normal gait. Vital Signs: 18:24 BP 165 / 111; Pulse 108; Resp 18 S; Temp 98.6(O); Pulse Ox 96% on R/A; Weight 87.54 kg aa5 (R); Height 5 ft. 7 in. (170.18 cm) (R); Pain 6/10; 18:40 Height 5 ft. 7 in. (170.18 cm) (R); Pain 6/10; rb1 19:00 BP 160 / 111; Pulse 110; Resp 18; Pulse Ox 99% on R/A; lp1 20:00 BP 140 / 101; Pulse 99; Resp 18; Pulse Ox 99% on R/A; Pain 5/10; lp1 20:58 BP 147 / 98; Pulse 93; Resp 18; Pulse Ox 97% on R/A; lp1 18:40 Body Mass Index 30.23 (87.54 kg, 170.18 cm) rb1 MDM: 18:29 Patient medically screened. kb 23:48 Data reviewed: vital signs, nurses notes. Data interpreted: Pulse oximetry: on room air kb is 97 %. Interpretation: normal. Counseling: I had a detailed discussion with the patient and/or guardian regarding: the historical points, exam findings, and any diagnostic results supporting the discharge/admit diagnosis, lab results, radiology results, the need for outpatient follow up, a family practitioner, to return to the emergency department if symptoms worsen or persist or if there are any questions or concerns that arise at home. 23:48 The patient's pulmonary embolism risk score was calculated as follows: No Risks (0 Pts).kb 08/12 18:36 Order name: Basic Metabolic Panel; Complete Time: 20:23 kb 08/12 18:36 Order name: CBC with Diff; Complete Time: 20:08 kb 08/12 18:36 Order name: LFT's; Complete Time: 20:23 kb 08/12 18:36 Order name: Magnesium; Complete Time: 20:23 kb 08/12 18:36 Order name: NT PRO-BNP; Complete Time: 20:23 kb 08/12 18:36 Order name: PT-INR; Complete Time: 20:05 kb 08/12 18:36 Order name: Troponin (emerg Dept Use Only); Complete Time: 20:23 kb 08/12 18:36 Order name: XRAY Chest (1 view); Complete Time: 19:56 kb 08/12 18:36 Order name: EKG; Complete Time: 18:37 kb 08/12 18:36 Order name: Cardiac monitoring; Complete Time: 19:16 kb 08/12 18:36 Order name: EKG - Nurse/Tech; Complete Time: 19:16 kb 08/12 18:36 Order name: D-Dimer; Complete Time: 20:05 kb 08/12 19:56 Order name: Urine Dipstick--Ancillary (enter results); Complete Time: 20:37 ar5 08/12 19:56 Order name: Urine --Ancillary (enter results); Complete Time: 20:37 ar5 08/12 18:36 Order name: IV Saline Lock; Complete Time: 19:16 kb 08/12 18:36 Order name: Labs collected and sent; Complete Time: 19:16 kb 08/12 18:36 Order name: O2 Per Protocol; Complete Time: 19:16 kb 08/12 18:36 Order name: O2 Sat Monitoring; Complete Time: 19:16 kb 08/12 18:39 Order name: Urine Dipstick-Ancillary (obtain specimen); Complete Time: 19:49 kb 08/12 18:39 Order name: Urine Test (obtain specimen); Complete Time: 19:49 kb EC:51 Rate is 101 beats/min. Rhythm is regular, Sinus tachycardia with No ectopy. QRS [place] is kdr Normal. LA interval is normal. QRS interval is normal. Clinical impression: NSR w/ Non-specific ST/T Changes. Administered Medications: No medications were administered Disposition: 08/13/19 20:42 Discharged to Home. Impression: Chest pain, unspecified. - Condition is Stable. - Discharge Instructions: Nonspecific Chest Pain, [id number]. - Medication Reconciliation Form, Thank You Letter, Antibiotic Education, Prescription Opioid Use, Work release form form. - Follow up: Emergency Department; When: As needed; Reason: Worsening of condition. Follow up: Private Physician; When: 2 - 3 days; Reason: Recheck today's complaints, Continuance of care, Re-evaluation by your physician. Addendum: 08/17/2019 10:13 Co-signature as Attending Physician, Taye Escobar MD I agree with the assessment and k dr plan of care. Signatures: Dispatcher [employer] EDSusan Neal, AUTOMOTIVE SALES MANAGER-C AUTOMOTIVE SALES MANAGER-CkTaye Curry MD MD kdr Calderon, Audri, RN RN aa5 Valeria Kim, MITUL RN lp1 Corrections: (The following items were deleted from the chart) 08/12 21:01 20:42 08/13/2019 20:42 Discharged to Home. Impression: Chest pain, unspecified. lp1 Condition is Stable. Forms are Medication Reconciliation Form, Thank You Letter, Antibiotic Education, Prescription Opioid Use. Follow up: Emergency Department; When: As needed; Reason: Worsening of condition. Follow up: Private Physician; When: 2 - 3 days; Reason: Recheck today's complaints, Continuance of care, Re-evaluation by your physician. kb
[2019-08-13 21:06] VITALS: TEMP 98.6
[2019-08-13 21:11] VITALS: BP 147/98; O2SAT 97
--- NOTE | 2019-08-14 07:04 | EKG ---
Test Date: 2019-08-13 Test Time: 18:38:14 Truck Hop: ODALYST MEASUREMENT RESULTS: Intervals: Rate: 101 SC: 156 QRSD: 84 QT: 356 QTc: 461 [place]: P: 62 SC: 156 QRS: 41 T: 6 INTERPRETIVE STATEMENTS: Sinus tachycardia Nonspecific T wave abnormality Abnormal ECG No previous ECG available for comparison Electronically Signed On 08-14-19 07:02:11 CDT by Naeem Eric
== END 2019-08-13 21:01 | disposition home or self-care (01) ==
LOC: ER 18:22
DX: R07.9 Chest pain, unspecified (principal)
CPT/HCPCS: 36415; 71045; 80048; 80076; 81003; 81025; 83735; 83880; 84484; 85025; 85379; 85610; 93005; 99285

== ENCOUNTER 2023-04-03 19:51 | Emergency (ER) | payer SELFPAY ==
[2023-04-03 20:34] LABS: Specific Gravity 1.026 (1.005-1.030)
[2023-04-03 20:42] LABS: Specific Gravity 1.026 (1.005-1.030); Urine Bacteria <20 /HPF (<20); Urine Bilirubin NEGATIVE (Negative); Urine Blood 1+ (Negative); Urine Clarity Turbid (Clear); Urine Color Light-Yellow (Yellow); Urine Glucose NEGATIVE (Negative); Urine Mucus Slight /HPF (None Seen); Urine Protein TRACE (Negative); Urine Urobilinogen Normal (Normal)
--- NOTE | 2023-04-03 21:17 | EDPHYS ---
Physician Documentation [facility] Name: Jinny Zelaya Age: 37 yrs Sex: Female : 1985 Arrival Date: 04/03/2023 Time: 19:51 Bed IW1 Private MD: ED Physician Ace Goncalves HPI: 04/03 21:15 This 37 yrs old Black Female presents to ER via Ambulatory with complaints of POSSIBLE kb UTI. 21:15 Patient is a 37-year-old female who presents for urinary frequency, urinating small kb amounts and pain with urination that started yesterday. Denies fever.. Historical: - Allergies: 20:14 No Known Allergies; nj1 - PMHx: 20:14 Hypertensive disorder; Diabetes mellitus; nj1 - PSHx: 20:14 Ligation of fallopian tube; nj1 - Immunization history:: Client reports receiving the 2nd dose of the Covid vaccine. - Social history:: Smoking status: Patient denies any tobacco usage or history of. ROS: 21:15 Constitutional: Negative for fever, chills, and weight loss, kb 21:15 : Positive for urinary symptoms, urinary frequency, small amounts, burning with urination, Exam: 21:15 Constitutional: This is a well developed, well nourished patient who is awake, alert, kb and in no acute distress. Head/Face: Normocephalic, atraumatic. ENT: Moist Mucous membranes Cardiovascular: Regular rate Respiratory: Respirations even and unlabored. No increased work of breathing. Talking in full sentences Abdomen/GI: Soft, non-tender. No distention Back: No spinal tenderness. No costovertebral tenderness. Full range of motion. Skin: Warm, dry with normal turgor. Normal color. MS/ Extremity: Pulses equal, no cyanosis. Neurovascular intact. Full, normal range of motion. Neuro: Awake and alert, GCS 15, oriented to person, place, time, and situation. Moves all extremities. Normal gait. Vital Signs: 20:12 BP 147 / 103; Pulse 99; Resp 16; Temp 98.7(O); Pulse Ox 100% ; Weight 73.48 kg; Height nj1 5 ft. 7 in. ; 20:12 Body Mass Index 25.37 (73.48 kg, 170.18 cm) nj MDM: 20:01 Patient medically screened. kb 21:15 Differential diagnosis: UTI, Kidney stone, pyelonephritis. Data reviewed: vital signs, kb nurses notes. Test considered but Not performed: CT: CT considered but patient is afebrile, nontoxic in appearance, no CVA or abdominal tenderness. Counseling: I had a detailed discussion with the patient and/or guardian regarding the historical points, exam findings, and any diagnostic results supporting the discharge/admit diagnosis, lab results, the need for outpatient follow up, a family practitioner, to return to the emergency department if symptoms worsen or persist or if there are any questions or concerns that arise at home. 04/03 20:02 Order name: Test, Urine; Complete Time: 20:51 kb 04/03 20:02 Order name: Urinalysis w/ reflexes; Complete Time: 20:57 kb 04/03 20:57 Order name: Urine Culture EDMS Administered Medications: No medications were administered Disposition Summary: 04/03/23 21:16 Discharge Ordered Notes: Location: Home kb Condition: Stable kb Diagnosis - UTI/ Urinary tract infection, site not specified kb Followup: kb - With: Emergency Department - When: As needed - Reason: Worsening of condition Followup: kb - With: Private Physician - When: 2 - 3 days - Reason: Recheck today's complaints, Continuance of care, Re-evaluation by your physician Discharge Instructions: - Discharge Summary Sheet kb - Urinary Tract Infection, Adult, [id number] kb - Form - Return To Work lg3 Forms: - Medication Reconciliation Form kb - Thank You Letter kb - Antibiotic Education kb - Prescription Opioid Use kb - Patient Portal Instructions kb - Leadership Thank You Letter kb - Work release form cm10 Prescriptions: - Augmentin 875-125 mg Oral Tablet - take 1 tablet ORAL route every 12 hours for 10 days; 20 tablet; Refills: 0, kb Product Selection Permitted Signatures: Dispatcher [employer] Susan Phelps, ORTEGA CORTEZ-Ching Schwarz, RN RN nj1
--- NOTE | 2023-04-03 21:17 | ER ---
Nurse's Notes [facility] Name: Jinny Zelaya Age: 37 yrs Sex: Female : 1985 Arrival Date: 04/03/2023 Time: 19:51 Bed IW1 Private MD: Diagnosis: UTI/ Urinary tract infection, site not specified Presentation: 04/03 20:12 Chief complaint: Patient states: "it hurts when i pee and a little bit after". Since nj1 yesterday, believe she may have a UTI. Coronavirus screen: Vaccine status: Patient reports receiving the 2nd dose of the covid vaccine. Ebola Screen: Patient denies travel to an Ebola-affected area in the 21 days before illness onset. Initial Sepsis Screen: Does the patient meet any 2 criteria? No. Patient's initial sepsis screen is negative. Does the patient have a suspected source of infection? No. Patient's initial sepsis screen is negative. Risk Assessment: Do you want to hurt yourself or someone else? Patient reports no desire to harm self or others. Onset of symptoms was April 02, 2023. 20:12 Method Of Arrival: Ambulatory [facility] 20:12 Acuity: ANAI 4 nj1 Historical: - Allergies: 20:14 No Known Allergies; nj1 - PMHx: 20:14 Hypertensive disorder; Diabetes mellitus; nj1 - PSHx: 20:14 Ligation of fallopian tube; nj1 - Immunization history:: Client reports receiving the 2nd dose of the Covid vaccine. - Social history:: Smoking status: Patient denies any tobacco usage or history of. Screenin:34 [facility] ED Fall Risk Assessment (Adult) History of falling in the last 3 months, cp4 including since admission No falls in past 3 months (0 pts) Confusion or Disorientation No (0 pts) Intoxicated or Sedated No (0 pts) Impaired Gait No (0 pts) Mobility Assist Device Used No (0 pt) Altered Elimination No (0 pt) Score/Fall Risk Level 0 - 2 = Low Risk Oriented to surroundings, Maintained a safe environment, Educated pt \\T\\ family on fall prevention, incl call for assistance when getting out of bed, Assessed \\T\\ reinforced patient's understanding of fall precautions, Hourly rounding (assess needs \\T\\ fall precautionary measures) done. Abuse screen: Denies threats or abuse. Nutritional screening: No deficits noted. Tuberculosis screening: No symptoms or risk factors identified. Assessment: 21:34 General: Appears in no apparent distress. Behavior is calm, cooperative, appropriate cp4 for age. Pain: Complains of pain in pelvic. Vital Signs: 20:12 BP 147 / 103; Pulse 99; Resp 16; Temp 98.7(O); Pulse Ox 100% ; Weight 73.48 kg; Height [facility] 5 ft. 7 in. ; 20:12 Body Mass Index 25.37 (73.48 kg, 170.18 cm) [facility] ED Course: 19:59 Patient arrived in ED. gm2 20:01 Susan Ambrocio FNP-C [facility]. kb 20:01 Ace Goncalves MD is Attending Physician. kb 20:14 Triage completed. nj1 20:15 Arm band placed on left wrist. nj1 21:34 Bed in low position. Provided Education on: urinary tract infection. cp4 21:34 No provider procedures requiring assistance completed. Patient did not have IV access cp4 during this emergency room visit. Administered Medications: No medications were administered Medication: 21:34 VIS not applicable for this client. cp4 Outcome: 21:16 Discharge ordered by MD. kb 21:34 Discharged to home ambulatory, cp4 21:34 Condition: stable 21:34 Discharge instructions given to patient, Instructed on discharge instructions, follow up and referral plans. medication usage, Demonstrated understanding of instructions, follow-up care, medications, Prescriptions given X 1, 21:36 Patient left the ED. cp4 Signatures: Susan Ambrocio FNP-C FNP-Ckb [place], Norma, RN RN wy1 Zofia Schuler cp4 Khadijah Godfrey 2
[2023-04-04 01:40] VITALS: BP 147/103; TEMP 98.7; O2SAT 100
== END 2023-04-03 21:36 | disposition home or self-care (01) ==
LOC: ER 19:51
DX: N39.0 Urinary tract infection, site not specified (principal)
CPT/HCPCS: 81001; 81025; 87086; 87088